=== PATIENT | female | born 1970 | race Hispanic/Latino ===

== ENCOUNTER 2024-09-16 08:23 | Emergency (ER) | payer OTHER ==
[~2024-09-16] VITALS: Ht 160 cm; Wt 88.9 kg
[2024-09-16 08:29] VITALS: PULSE 85; RESP 15; TEMP 97.8; O2SAT 98
[2024-09-16] MEDS ORDERED: ULTRAM 50MG50 MG PO (08:59)
== END 2024-09-16 09:00 | disposition home or self-care (01) ==
LOC: ER 08:50
DX: B02.29 Other postherpetic nervous system involvement (principal); I10 Essential (primary) hypertension; E11.9 Type 2 diabetes mellitus without complications
CPT/HCPCS: 99283